=== PATIENT | male | born 1955 | race Caucasian/White ===

== ENCOUNTER 2020-03-02 11:57 | Outpatient (CLI) | payer MEDICARE ==
[~2020-03-02 11:57] MED LIST: REGADENOSON 0.4 MG/5 ML SYRINGE ONE
== END 2020-03-02 23:59 | disposition home or self-care (01) ==
LOC: CFH 11:57
PROVIDERS: ATTEND Internal Medicine Cardiovascular Disease
DX: Z01.818 Encounter for other preprocedural examination (principal); I48.91 Unspecified atrial fibrillation; E66.01 Morbid (severe) obesity due to excess calories; E11.9 Type 2 diabetes mellitus without complications; E03.9 Hypothyroidism, unspecified; M19.90 Unspecified osteoarthritis, unspecified site; G47.30 Sleep apnea, unspecified; Z68.43 Body mass index [BMI] 50.0-59.9, adult
CPT/HCPCS: 78452; 93017; A9502; J2785

== ENCOUNTER 2020-03-25 06:15 | Observation (INO) | payer MEDICARE, MEDICAID ==
[~2020-03-25] VITALS: Ht 182.9 cm; Wt 90.2 kg
[2020-03-25] MEDS ORDERED: SODIUM CHLORIDE 0.9% 1,000 ML IV SCH (06:29)
[2020-03-25] MEDS ORDERED: APIX5TAB PO (06:29)
[2020-03-25] MEDS ORDERED: ATEN25TA PO (06:29)
[2020-03-25 06:41] VITALS: BP 135/84
[2020-03-25] MEDS ORDERED: PLEASE ENTER HEIGHT AND WEIGHT MC SCH (07:00)
[2020-03-25 07:10] LABS: ANION GAP 7 mmol/L (5-15); CALCIUM 8.5 mg/dL (8.5-10.1); CHLORIDE 107 mmol/L (98-107); CREATININE 0.89 mg/dL (0.7-1.3)
[2020-03-25 07:21] LABS: BASOPHILS # (AUTO) 0.04 x10^3/uL (0-0.1); BASOPHILS % (AUTO) 1 % (0-1); EOSINOPHILS % (AUTO) 3 % (1-7); LYMPHOCYTES # (AUTO) 1.21 x10^3/uL (1-3.4); LYMPHOCYTES % (AUTO) 17 % (22-44); MD NO; MEAN CORPUSCULAR HGB CONC 33.8 g/dL (33.2-36.2); MEAN CORPUSCULAR VOLUME 91.7 fL (81-97); MEAN PLATELET VOLUME 8.6 fL (7.4-10.4); MONOCYTES # (AUTO) 0.57 x10^3/uL (0.2-0.8); MONOCYTES % (AUTO) 8 % (2-9); NEUTROPHILS # (AUTO) 4.99 x10^3/uL (1.8-6.8); NEUTROPHILS % (AUTO) 71 % (42-75); PLATELET COUNT 272 x10^3/uL (130-400); RED BLOOD COUNT 4.64 x10^6/uL (4.38-5.82); RED CELL DISTRIBUTION WIDTH 13.8 % (9.4-14.8)
[2020-03-25] MEDS ORDERED: FENTANYL PF 100 MCG/2ML ONE ×2 (07:44→08:53)
[2020-03-25] MEDS ORDERED: MIDAZOLAM 1 MG/ML, 2ML ONE (07:44)
[2020-03-25] MEDS ORDERED: LIDOCAINE-MPF 2% ,5ML ONE (07:45)
[2020-03-25] MEDS ORDERED: HEPARIN 1,000 UNITS/ML, 10ML ONE ×2 (07:52)
[2020-03-25] MEDS ORDERED: ONDANSETRON 2MG/ML, 2ML IV PRN (08:00)
[2020-03-25] MEDS ORDERED: FENTANYL PF 100 MCG/2ML IV PRN (08:00)
[2020-03-25] MEDS ORDERED: OXYcodone 5 MG/5 ML ORAL.SOL UDC PO PRN (08:00)
[2020-03-25] MEDS ORDERED: hydrALAzine 20 MG/ML, 1ML IV PRN (08:00)
[2020-03-25] MEDS ORDERED: EPHEDRINE 50 MG/ML, 1ML IVPush PRN (08:00)
[2020-03-25] MEDS ORDERED: ACETAMINOPHEN 325 MG TABLET PO PRN ×2 (08:00→10:00)
[2020-03-25] MEDS ORDERED: MEPERIDINE/PF 25MG/ML,1ML IVPush PRN (08:00)
[2020-03-25] MEDS ORDERED: LABETALOL 5MG/ML, 20ML IV PRN (08:00)
[2020-03-25] MEDS ORDERED: PROMETHAZINE 25 MG/ML, 1ML IV PRN (08:00)
[2020-03-25] MEDS ORDERED: HYDROmorphone 2 MG/ML, 1ML IVPush PRN (08:00)
[2020-03-25] MEDS ORDERED: LIDOCAINE 1%, 20ML ONE (08:20)
[2020-03-25] MEDS ORDERED: SUCCINYLCHOLINE 20 MG/ML, 10ML ONE (08:26)
[2020-03-25] MEDS ORDERED: DEXAMETHASONE 4 MG/ML, 1ML ONE (08:26)
[2020-03-25] MEDS ORDERED: PROPOFOL 10 MG/ML, 20ML ONE (08:26)
[2020-03-25] MEDS ORDERED: ONDANSETRON 2MG/ML, 2ML ONE (08:26)
[2020-03-25] MEDS ORDERED: ROCURONIUM 10MG/ML,5ML ONE (08:26)
[2020-03-25] MEDS ORDERED: SUGAMMADEX 200 MG/2 ML IVPush ONE (08:26)
[2020-03-25] MEDS ORDERED: PHENYLEPHRINE 10 MG/ML ONE (09:14)
[2020-03-25] MEDS ORDERED: hydrALAzine 20 MG/ML, 1ML ONE (09:32)
[2020-03-25] MEDS: APIXABAN 5 MG TABLET PO SCH ×2 (10:00→22:27)
[2020-03-25] MEDS ORDERED: APIXABAN 5 MG TABLET ONE (10:06)
[2020-03-25 16:17] VITALS: BP 151/81
[2020-03-25 20:00] VITALS: BP 148/81
[2020-03-26 02:00] VITALS: BP 128/54
[2020-03-26 06:55] VITALS: BP 145/84
[2020-03-26] MEDS ORDERED: ATENOLOL 25 MG TABLET PO SCH (09:00)
[2020-03-26] MEDS: APIXABAN 5 MG TABLET PO SCH (09:07)
[2020-03-26] MEDS ORDERED: ACET325T26 PO (10:01)
[2020-03-26 12:24] VITALS: BP 148/88
== END 2020-03-26 13:47 | disposition home or self-care (01) ==
LOC: CACL 06:15 → ORIP 09:31 → 5SO 12:41
PROVIDERS: ADMIT Internal Medicine Cardiovascular Disease; ATTEND Internal Medicine Cardiovascular Disease
DX: I48.91 Unspecified atrial fibrillation (principal); I48.92 Unspecified atrial flutter; I10 Essential (primary) hypertension; Z79.01 Long term (current) use of anticoagulants; Z79.899 Other long term (current) drug therapy
CPT/HCPCS: 36415; 80048; 85025; 85347; 93306; 93356; 93462; 93613; 93621; 93653; 93662; C1730; C1732; C1759; C1766; C1893; C1894; G0378; J0330; J0360; J1100; J1644; J2250; J2370; J2405; J2704; J3010; J3490